=== PATIENT | male | born 1950 | race Caucasian/White ===

== ENCOUNTER → 2020-02-24 | Outpatient (CLI) | payer MEDICARE, OTHER ==
--- NOTE | 2020-02-24 13:47 | Pulmonary Function Test ---
Pulmonary Function Test Date of Procedure:: 02/24/20 - Received 02/24/2020 INDICATION:: Dyspnea Referring Provider: Teofilo Sherwood Ct Scan Technician: Crystal Phillip [employer]ALLOW PU[employer]ER, [employer] REPAIRER - Report Spirometry: Spirometry: pre-FVC: 4.86 L 114% post-FVC: 4.58 L 107% pre-FEV:1 2.95 L 88% post-FEV1: 2.97 L 89% pre-FEV1/FVC %: 61 post-FEV1/FVC%: 65 predicted: 78 [id number]%: 1.27 L 39% [id number]%: 1.59 L 48% Impression: Mild obstructive ventilatory defect. Limited response to bronchodilator therapy. This does not preclude a clinical trial of bronchodilator therapy.
== END ==
LOC: RT 08:06
PROVIDERS: ATTEND Family Medicine
DX: J44.9 Chronic obstructive pulmonary disease, unspecified (principal); R06.02 Shortness of breath
CPT/HCPCS: 94060